=== PATIENT | female | born 1940 | race Caucasian/White ===

== ENCOUNTER 2017-03-01 21:44 | Emergency (ER) | payer OTHER ==
[~2017-03-01] VITALS: Ht 152.4 cm; Wt 55.4 kg
[2017-03-01 21:48] VITALS: TEMP 37.2; Ht 152.4 cm; Wt 55.4 kg
[2017-03-01] MEDS ORDERED: LATA0.5S OPB (22:28)
--- NOTE | 2017-03-01 22:54 | DIAGNOSTIC IMAGING REPORT ---
LEFT FOOT MIN 3 VIEWS ROUTINE CLINICAL HISTORY: Left foot pain. Trauma. COMPARISON: None. DISCUSSION: The bones are osteopenic. There is a plantar calcaneal spur. There are mild degenerative changes. No fractures are visualized. IMPRESSION: Osteopenia. No acute fractures or dislocations identified. Electronically signed by: Randy Buenrostro M.D. 03/01/2017 10:53 PM Dictated Date/Time: 03/01/2017 10:52 PM
--- NOTE | 2017-03-01 22:56 | DIAGNOSTIC IMAGING REPORT ---
LEFT ANKLE MIN 3 VIEWS ROUTINE CLINICAL HISTORY: Left ankle pain status post trauma COMPARISON: None. DISCUSSION: The bones are osteopenic. There is a plantar calcaneal spur. No acute fractures or dislocations are visualized. IMPRESSION: No fractures identified. Electronically signed by: Randy Buenrostro M.D. 03/01/2017 10:55 PM Dictated Date/Time: 03/01/2017 10:54 PM
--- NOTE | 2017-03-01 22:57 | EMERGENCY ROOM VISIT NOTE ---
ED Visit Note First contact with patient: 21:50 This Patient was discussed with the physician Director Equipment, Jyothi Villegas PA-C. The pertinent historical and physical exam findings were confirmed. I agree with the studies ordered and with the interpretations of these studies. I agree with the disposition and care plan.
--- NOTE | 2017-03-01 22:57 | DIAGNOSTIC IMAGING REPORT ---
LEFT TIBIA/FIBULA 2 VIEWS ROUTINE CLINICAL HISTORY: Left lower leg pain status post trauma COMPARISON: None. DISCUSSION: The bones are osteopenic. No acute fractures or dislocations are visualized. IMPRESSION: No fractures identified. Electronically signed by: Randy Buenrostro M.D. 03/01/2017 10:55 PM Dictated Date/Time: 03/01/2017 10:55 PM
--- NOTE | 2017-03-01 23:02 | EMERGENCY ROOM VISIT NOTE ---
ED Visit Note First contact with patient: 21:50 CHIEF COMPLAINT: Foot/leg pain HISTORY OF PRESENT ILLNESS: This 76-year-old female patient presents to the emergency department ambulatory complaining of left foot/leg pain. The patient states that she was playing with her grandkids in a toy wagon. She reports that they were going down a hill and she attempted to stop the wagon by putting her left leg down. She describes pain in the outside of her left foot which radiates up the left leg. She rates her discomfort a 10/10. She is able to walk. She denies any numbness or weakness. She denies any previous injuries to this ankle/foot. REVIEW OF SYSTEMS: GENERAL: A 6 system review of systems was completed with positives and pertinent negatives in the HPI. ALLERGIES: Narcotics MEDICATIONS: Latanoprost PMH: No significant past medical history. SOCIAL HISTORY: The patient lives locally with family. PHYSICAL EXAM: Vital Signs: Reviewed Nurse's notes, vital signs stable. GENERAL : This is a 76-year-old female, in no acute distress, but appears in pain, well- developed, well-nourished. MUSCULOSKELETAL: No visual deformities. There is tenderness to palpation of the lateral aspect of the left foot and over the lateral aspect of the left tibia/fibula. There is no tenderness over the lateral or medial malleolus. Range of motion is full. The skin is intact and there are no lacerations or puncture wounds. Dorsalis pedis pulse 2+. Capillary refill less than 2 seconds. RADIOGRAPHIC FINDINGS: LEFT ANKLE MIN 3 VIEWS ROUTINE DISCUSSION: The bones are osteopenic. There is a plantar calcaneal spur. No acute fractures or dislocations are visualized. IMPRESSION: No fractures identified. LEFT FOOT MIN 3 VIEWS ROUTINE DISCUSSION: The bones are osteopenic. There is a plantar calcaneal spur. There are mild degenerative changes. No fractures are visualized. IMPRESSION: Osteopenia. No acute fractures or dislocations identified. LEFT TIBIA/FIBULA 2 VIEWS ROUTINE DISCUSSION: The bones are osteopenic. No acute fractures or dislocations are visualized. IMPRESSION: No fractures identified. EMERGENCY DEPARTMENT COURSE: I examined the patient. X-rays were performed and reviewed by myself and radiology as noted above. There are no acute fractures. The patient was placed in a postoperative shoe. Conservative measures were discussed. The patient was independently evaluated by Dr. Thornton, ED attending physician, who agreed with my assessment and treatment plan. The patient verbalized her understanding of my assessment and treatment plan and was discharged home in good condition. DIAGNOSIS: Left foot injury Current/Historical Medications Scheduled Latanoprost (Xalatan 0.005% Oph Dot), 1 DROP OPB HS Allergies Coded Allergies: Morphine (Verified Adverse Reaction, Mild, NAUSEA, 12/10/09) Uncoded Allergies: NARCOTICS (Adverse Reaction, Severe, NAUSEA, VERTIGO, 12/24/13) Vital Signs Date Time Temp Pulse Resp B/P Pulse Ox O2 Delivery O2 Flow Rate FiO2 03/01/17 23:10 66 16 136/74 99 03/01/17 21:48 37.2 70 18 143/78 99 Room Air Departure Information Impression Primary Impression: Injury of left foot Dispostion Home / Self-Care Condition GOOD Referrals No Doctor, Assigned (PCP) Patient Instructions My [facility] Additional Instructions You have been treated in the Emergency Department for a foot injury. For pain control, you can use the following [id number] medicines (if >12 yo): - Regular strength (325mg/tab) Tylenol (acetaminophen) 2 tabs every 4-6 hours as needed. Do not exceed 12 tablets in a 24 hour period. Avoid taking more than 4 grams (4000 mg) of Tylenol per day. This includes any other sources of acetaminophen you may take on a regular basis. - Regular strength (200 mg/tab) Advil (ibuprofen) 1-2 tabs every 4-6 hours as needed. Do not exceed a dose of 3200 mg per day. If this is a recent injury (<24 hrs), ice can be applied to the area of pain for the first 3 days to help decrease pain and inflammation. Follow-up with your primary care provider next week. Wear the boot for the next 3-4 days, then as needed for pain. Return to the Emergency Department if your current symptoms worsen despite treatment course outlined above, or if you develop any of the following symptoms : intractable pain despite aforementioned treatment course or new onset of numbness or tingling of the foot. Problem Qualifiers Primary Impression: Injury of left foot Encounter type: initial encounter Qualified Codes: S99.922A - Unspecified injury of left foot, initial encounter
[2017-03-01 23:10] VITALS: BP 136/74; PULSE 66; O2SAT 99
== END 2017-03-01 23:11 | disposition home or self-care (01) ==
LOC: C.EDB 21:45 → C.EDD 23:11
DX: S99.922A Unspecified injury of left foot, initial encounter (principal); X58.XXXA Exposure to other specified factors, initial encounter; Y93.89 Activity, other specified; Y99.8 Other external cause status

== ENCOUNTER 2019-12-16 17:30 | Inpatient (IN) ==
[2019-12-16] MEDS ORDERED: SODIUM CHLORIDE 0.9% 1000ML 1,000 ML IV SCH (18:00)
[2019-12-16 18:03] LABS: Appearance Urine Clear (Clear); Bilirubin Urine Negative (Negative); Blood Urine Negative (Negative); Color Urine Yellow; Glucose Urine UA Negative (Negative); Ketones Urine Negative (Negative); Leukocyte Esterase Urine Negative (Negative); Nitrite Urine Negative (Negative); Protein Urine Negative (Negative); Specific Gravity Urine 1.015 (1.000-1.030); Urobilinogen Urine Negative (Negative); pH Urine 7.5 (4.5-7.5)
--- NOTE | 2019-12-16 18:09 | XRay Report ---
XR chest 1V portable CLINICAL HISTORY: 79 years-old Female presenting with weakness. TECHNIQUE: Portable upright AP view of the chest was obtained. COMPARISON: 12/12/2013. FINDINGS: Atherosclerosis of the aortic arch. Cardiac silhouette normal in size. Lungs mildly hyperinflated. Qu estionable nodular opacities in the left apex. No other focal opacity. No pleural effusion or pneumot horax. Osseous structures normal. Upper abdomen normal. IMPRESSION: 1. Questionable left apical nodular infiltrate versus prominence of vasculature. No other evidence o f acute cardiopulmonary disease. ACT 112: Negative or not required by law. Electronically signed by: Raymond Penn M.D. 12/16/2019 6:08 PM
[2019-12-16 18:37] LABS: Hematocrit (blood only) 35.5 % (37-47); Hemoglobin 11.7 g/dL (12.0-16.0); Mean Corpuscular Hemoglobin 30.4 pg (25-34); Mean Corpuscular Volume 92.2 fL (80-100); Platelet Count 222 K/uL (130-400); RDW Coefficient of Variation 13.5 % (11.5-14.5); RDW Standard Deviation 45.3 fL (36.4-46.3); Red Blood Count 3.85 M/uL (4.2-5.4)
--- NOTE | 2019-12-16 18:43 | CT Scan Report ---
CT head/brain wo con CLINICAL HISTORY: 79 years-old Female presenting with ams. TECHNIQUE: Multidetector CT imaging of the head was performed without the use of intravenous contrast . IV contrast: None. One or more dose lowering techniques were used consistent with the principles of ALARA (as low as reasonably achievable), including automatic exposure control, mA or kV adjustment t o individual patient size, and/or use of iterative reconstruction. COMPARISON: None. CT DOSE (mGy.cm): The estimated cumulative dose is 537.48 mGy.cm. FINDINGS: [employer] M[employer]ainer topogram: Unremarkable. Proportional ventricular and sulcal prominence, likely age-related parenchymal volume loss. No hemorr brian. Periventricular and subcortical white matter hypoattenuation, nonspecific but likely indicative of chronic small vessel ischemic change. No acute territorial infarct. No mass effect or midline vinicio ft. No extra-axial fluid collection. Paranasal sinuses and mastoid air cells clear. Calvarium intact. IMPRESSION: 1. Chronic small vessel ischemic change. No acute intracranial abnormality. ACT 112: Negative or not required by law. Electronically signed by: Raymond Penn M.D. 12/16/2019 6:42 PM
[2019-12-16 18:53] LABS: Prothrombin Time 10.5 Seconds (9.0-12.0)
[2019-12-16 18:54] LABS: Alanine Aminotransferase 26 U/L (12-78); Aspartate Aminotransferase 21 U/L (15-37); BUN Creatinine Ratio 10.9 (10-20); Blood Urea Nitrogen 11 mg/dl (7-18); Calcium 9.2 mg/dl (8.5-10.1); Carbon Dioxide 27 mmol/L (21-32); Chloride 106 mmol/L (98-107); Creatinine Clr Calc Pharmacy 36.7 ml/min; Est GFR (African American) 62.5; Est GFR (Non-African American) 53.9; Glucose 87 mg/dl (70-99); Potassium 3.7 mmol/L (3.5-5.1); Sodium 136 mmol/L (136-145)
[2019-12-16] MEDS ORDERED: LEVOFLOXACIN/D5W 750 MG/150 ML BAG IV SCH (19:00)
[2019-12-16 19:09] LABS: Basophils # (auto) 0.02 K/uL (0-0.2); Basophils % (auto) 0.3 %; Eosinophils # (auto) 0.06 K/uL (0-0.5); Immature Granulocytes # (auto) 0.01 K/uL (0.00-0.02); Immature Granulocytes % (auto) 0.2 %; Lymphocytes # (auto) 0.88 K/uL (1.2-3.4); Lymphocytes % (auto) 14.4 %; Monocytes # (auto) 0.66 K/uL (0.11-0.59); Monocytes % (auto) 10.8 %; Neutrophils # (auto) 4.47 K/uL (1.4-6.5); Neutrophils % (auto) 73.3 %
[2019-12-16 19:34] LABS: Albumin Globulin Ratio 1.2 (0.9-2); Alkaline Phosphatase 59 U/L (45-117); Bilirubin,Total 0.3 mg/dl (0.2-1); Globulin 3.3 gm/dl (2.5-4.0); Thyroid Stimulating Hormone 0.992 uIu/ml (0.300-4.500); Total Protein 7.3 gm/dl (6.4-8.2); Troponin I < 0.015 ng/ml (0-0.045)
[2019-12-16] MEDS ORDERED: KETOROLAC TROMETHAMINE 15 MG/ML VIAL IV ONE (19:40)
[2019-12-16] MEDS ORDERED: cefTRIAXone SODIUM 1,000 MG/50 ML BAG IV STA (19:45)
[2019-12-16] MEDS ORDERED: SODIUM CHLORIDE 0.9% 1000ML 1,000 ML IV ONE (19:45)
[2019-12-16 21:17] LABS: Influenza B virus by PCR Neg for Influ B (Neg)
[2019-12-16] MEDS ORDERED: OSELTAMIVIR PHOSPHATE 75 MG CAP PO SCH (21:45)
[2019-12-16] MEDS ORDERED: PHARMACIST DISCHARGE MED REC CONSULT PRN (22:20)
[2019-12-16] MEDS ORDERED: NITROGLYCERIN SL 0.4 MG/TAB TAB SL PRN (22:20)
[2019-12-16] MEDS ORDERED: PIPERACILL/TAZOBAC CONSULT ACTIVE PRN (22:20)
--- NOTE | 2019-12-16 22:39 | History and Physical Report ---
DATE OF ADMISSION: 12/16/2019 CHIEF COMPLAINT: Altered mental status. 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 She is supposed to be on oxygen all the time, but she uses only in the nighttime and she still smokes, she has smoked since as a teenager, but currently 1 pack of cigarettes, lasts for 2-3 days. The patient lives with her daughter. In the morning, when the daughter left for work she was fine, and when the daughter came in the evening around 5:00, patient was found to be confused. She could not open her eyes, she could not squeeze her hands, and they thought maybe she was having a stroke and EMS was called in and patient was brought to the ER. In the ER, when she came in, she was afebrile, but later she spiked temperature. Her blood pressure is on the lower side, but there is no leukocytosis. She was oriented to name. UA was negative. CT of the head was unremarkable. Chest x-ray showed possible left apical nodular infiltrate. So it was thought that confusion could be from her ongoing infectious process. The patient is somewhat warm to touch, oriented to name, can tell her date of , but when asked where she is, she says knows where she is, but she does not answer and she talks sometimes tangentially. She knows her daughters names. Could not get much history from the patient As per the daughters, last night she had some cough, complained of some back pain, they thought may be she has some UTI. Apparently, she was doing fine otherwise and when daughter was going to work, she was doing fine and also in the evening when she came in, she saw that she cleaned the kitchen, but we do not know exact time when she got confused. There is no nausea, vomiting or diarrhea. No complaint of any pain. Otherwise she is very independent and ambulates fine, but today when they were bringing her to hospital, she looked like she was very unstable on ambulation. But after some time later it looks like her mental status is slightly improved. She seems to be a little more appropriate in answering questions. She was able to obey simple commands. When discussed with daughter about whether she wants any MRI scan to rule out stroke, the daughter wanted to get MRI scan initially but when flu came back positive she was ok waiting and see and also we don't know the exact time of her staring of confusion . ALLERGIES: MORPHINE. PAST MEDICAL HISTORY: As mentioned above. PAST SURGICAL HISTORY: , discectomy of the spine, sling attached to the bladder and urethra, lumbar hemilaminectomy, lasering of secondary cataracts bilaterally, back surgeries x2 in [place]. MEDICATIONS: The patient is currently on aspirin 81 mg p.o. daily, Lipitor 40 mg p.o. a.m., Cosopt one drop ophthalmic b.i.d., latanoprost 1 drop ophthalmic at bedtime. FAMILY HISTORY: Significant for brother has diabetes and heart disorder. Mother has CABG in the 60s. Sister has hypertension. SOCIAL HISTORY: , lives with her daughter. Used to smoke 1 pack a day, but lately is smoking 1 pack every 2-3 days. She has smoked since last 55 years. No alcohol use, no drug use. REVIEW OF SYSTEMS: Could not get complete review of systems because of patient's altered mental status. PHYSICAL EXAMINATION: GENERAL: The patient is alert and oriented to name, could tell her date of . VITAL SIGNS: Temperature 38.7, pulse 83, respiratory rate 30s, blood pressure 98/55, oxygen 96% on room air. HEENT: No pallor, no icterus. Pupils equal, round, and reactive to light. NECK: No JVD, no neck masses, no carotid bruits. CARDIOVASCULAR: S1, S2 heard, regular rate and rhythm, no murmur, no gallop. RESPIRATORY SYSTEM: Normal AP diameter. No accessory muscle use. No wheezing, no crackles. ABDOMEN: Soft, bowel sounds present, nontender. No distention. CENTRAL NERVOUS SYSTEM: Alert and oriented x1, can tell her date of . Speech is clear. Obeys simple commands. No pronator drift. Power is normal in the extremities. Could not do complete exam because the patient is somewhat confused and has difficulty following complex commands. EXTREMITIES: No edema, no erythema. LABORATORY DATA: WBC 6.1, hemoglobin 11.7, hematocrit 35.5, platelets 222. PT 10.5, INR 1. Sodium 136, potassium 3.7, chloride 106, bicarbonate 27, BUN 11, creatinine 1, serum glucose 187. Lactate 1.1, calcium 9.2, magnesium 2, total bilirubin 0.3, AST 21, ALT 26, alkaline phosphatase 59. Troponin I less than 0.015. TSH 0.992. Urinalysis negative. Influenza A and B PCR negative. IMAGING DATA: Chest x-ray, questionable left apical nodular infiltrate versus prominent vasculature. IMAGING DATA: CT of the head, no acute findings seen. Chronic small vessel ischemic change. EKG: Normal sinus rhythm with rate of 77, nonspecific T-wave abnormality. ASSESSMENT AND PLAN: A 79-year-old female who was brought in because of altered mental status. 1. Altered mental status, acute encephalopathy, most likely metabolic from fever and flu. Possibility of pneumonia on the x-ray. UA is negative. . Lactate is normal. We will treat with IV fluids, normal saline 125 mg per hour, IV Rocephin and , IV doxycycline. Follow the cultures. Closely monitor in the tele floor. Later Flu came positive for influenza A. Started on Tamiflu and continued iv abx and fluids. 2. Questionable cerebrovascular accident. The patient is somewhat speaking tangentially. The rest of the exam looks okay and the family is concerned, and also there was no obvious source of infection initially. Ct head unremarkable. If any ongoing suspicion will get MRI head. 3. History of asthma. History of tobacco abuse. Supposed to be on inhalers and oxygen all the time. Will use oxygen only in the nighttime and not using inhalers. The patient does not have any wheezing. counseling for tobacco abuse when stable. We will place on nebs p.r.n. and oxygen. May do 2 step prior to discharge. 4. Hyperlipidemia, on statin. 5. Chronic kidney disease stage III, creatinine 1, seems to be at baseline. We will follow the labs. 6. History of abdominal aortic aneurysm at 4.6 cm on the CAT scan in February 2019. 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 Follows with vascular surgery. 7. Deep venous thrombosis prophylaxis. We will place on sequential compression devices. 8. Disposition: Closely monitor in tele floor. Level 1 full code status. Daughters do not know her wishes, but okay for full code for now. Admit to tele floor. Expect to discharge home and follow with the family doctor. PT and OT prior to discharge. Social service to help with discharge planning. JACINDA
[2019-12-16] MEDS ORDERED: OSELTAMIVIR PHOSPHATE SUSP 30 MG/5 ML UDP PO ONE (22:45)
[2019-12-16 22:53] LABS: Base Excess ABG -3.2 mEq/L (-9-1.8); HCO3 ABG 21 mmol/L (19-24); Oxygen Saturation ABG 96.6 % (90-95); PCO2 ABG 32 mmHg (35-46); PO2 ABG 82 mmHg (80-95); pH ABG 7.42 (7.35-7.45)
[2019-12-16 22:54] LABS: Allen Test Pos (Pos)
[2019-12-16] MEDS: SODIUM CHLORIDE 0.9% 1000ML 1,000 ML IV SCH (22:56)
[2019-12-16] MEDS: DORZOLAMIDE HCL 2% OPH SOLN 10 ML BTL OPB SCH (23:24)
[2019-12-16] MEDS: LATANOPROST 0.005% OP SOLN 2.5 ML BTL OPB SCH (23:24)
[2019-12-16] MEDS: DOXYCYCLINE HYCLATE 100 MG in DEXTROSE 5% 100 ML IV SCH (23:31)
--- NOTE | 2019-12-16 23:56 | Emergency Department Note ---
Entered by Bren Larsen acting as a scribe for Adonay Cain DO History of Present Illness General Chief complaint: Confusion Stated complaint: STROKE SX, AMS Source: family (daughter) History of Present Illness Onset (ago): hour(s) (2) Location: head (general) Pain Consistency: + intermittent Quality: + other (confusion) Associated symptoms: + denies other symptoms (runny nose, pain or burning with urination, diarrhea, abdominal pain) and + other (garbled speech, back pain); no cough The patient is a 79 year old female who presents to the Emergency Room with complaints of intermittent confusion noticed 2 hours ago. The patient's daughter states the patient lives with her. She note the patient was last seen normal this morning. The patient's daughter reports the patient was lying on the couch, could not open her eyes, and had garbled speech when she came home this afternoon. She states the patient was complaining of back pain. She notes the patient was able to squeeze her hands. The patient's daughter denies a cough, runny nose, pain or burning with urination, diarrhea, and abdominal pain. She reports a history of high cholesterol, abdominal aneurysms, COPD and smoking. She states the patient is supposed to wear 4L of oxygen but does not comply. She notes the patient does not have a history of dementia. She reports the patient is on baby aspirin. Home Medications Home Medications Medication Instructions Recorded Confirmed Type aspirin 81 mg PO QAM 11/26/19 12/16/19 History atorvastatin [Lipitor] 40 mg PO QAM 11/26/19 12/16/19 History dorzolamide [Trusopt] 1 drp OPB BID 12/16/19 12/16/19 History latanoprost [Xalatan] 1 drp OPB HS 12/16/19 12/16/19 History Allergies Allergy/AdvReac Type Severity Reaction Status Date / Time morphine AdvReac Mild NAUSEA Verified 12/16/19 18:24 NARCOTICS AdvReac Severe NAUSEA, Uncoded 12/16/19 18:24 VERTIGO Past Med/Surg History Medical History Abdominal aneurysm Injury of left foot (Acute) Surgical History Postoperative state (Acute 12/24/13) Family History Other Family history non-contributory Social History Preferred Language: German Senior Clinician Required: No Beliefs That Will Affect Care: None Current Living Situation: Family Current Living Situation Comment: single floor Other Information That Helps Us Care for You: No Feels Safe at Home: Yes Safety Concerns: Feels Safe At This Time Smoking Status: Current every day smoker Tobacco Type: cigarettes ; Do You Dip or Chew Tobacco: No ; Second Hand Exposure: Yes ; Tobacco Cessation Education Requested by Patient: No Hx Alcohol Use: No Hx Substance Use: No Review of Systems See HPI for pertinent positives & negatives. Unobtainable due to cognitive status Physical Exam Vital Signs Vital Signs - 24 hr 12/16/19 17:44 12/16/19 17:58 12/16/19 19:01 Temperature 37.3 C Temperature Source Oral Pulse Rate 80 83 Pulse Rate from SpO2 Sensor Respiratory Rate 17 28 H Blood Pressure 109/66 80/57 L Blood Pressure Mean 80 66 Pulse Oximetry 97 97 Oxygen Delivery Method Room Air Room Air Sepsis Recent Fever Within 48 Hours No Sepsis Action Taken by Nursing No Action Required 12/16/19 19:14 12/16/19 19:15 12/16/19 19:31 Temperature Temperature Source Pulse Rate 86 79 78 Pulse Rate from SpO2 Sensor 85 78 81 Respiratory Rate 35 H 26 H 31 H Blood Pressure 155/132 H 91/71 L 96/55 L Blood Pressure Mean 136 85 60 Pulse Oximetry 97 98 96 Oxygen Delivery Method Sepsis Recent Fever Within 48 Hours Sepsis Action Taken by Nursing 12/16/19 19:41 12/16/19 19:50 12/16/19 19:55 Temperature 38.7 C H Temperature Source Rectal Pulse Rate 83 Pulse Rate from SpO2 Sensor 88 Respiratory Rate 37 H Blood Pressure 98/55 L Blood Pressure Mean 61 Pulse Oximetry 96 96 Oxygen Delivery Method Room Air Sepsis Recent Fever Within 48 Hours Sepsis Action Taken by Nursing 12/16/19 20:01 Temperature Temperature Source Pulse Rate 75 Pulse Rate from SpO2 Sensor 75 Respiratory Rate 31 H Blood Pressure 110/51 L Blood Pressure Mean 78 Pulse Oximetry 95 Oxygen Delivery Method Sepsis Recent Fever Within 48 Hours Sepsis Action Taken by Nursing GENERAL: sitting up in bed, disheveled, confused HEAD: nc/at EYE EXAM: normal conjunctiva, PERRL and EOM's grossly intact OROPHARYNX: no exudate, no erythema, lips, buccal mucosa, and tongue normal and mucous membranes are moist NECK: supple, no nuchal rigidity, no adenopathy, non-tender LUNGS: Clear to auscultation. Normal chest wall mechanics HEART: no murmurs, S1 normal and S2 normal ABDOMEN: abdomen soft, non-tender, normo-active bowel sounds, no masses, no rebound or guarding. BACK: Back is symmetrical on inspection and there is no deformity, no midline tenderness, no CVA tenderness. SKIN: no rashes and no bruising UPPER EXTREMITIES: upper extremities are grossly normal. LOWER EXTREMITIES: No pitting edema. NEURO EXAM: Oriented to person, but not place or time, cranial nerves II-XII intact, normal speech, no weakness of arms, no weakness of legs. Unable to perform finger to nose. Gross sensation intact. Moves all extremities. Course Course ED COURSE: Vital signs were reviewed and showed hypotension The patients medical record was reviewed The above diagnostic studies were performed and reviewed. ED treatments and interventions as stated above. 1740: The patient was evaluated in room C10. A complete history and physical ex amination was performed. 1950: Blood pressure was 150 systolics up from 80s. 2020: Upon reevaluation, the patient is resting comfortably. I discussed my findings with the family understands and agrees with the treatment plan. Based on the patients age, coexisting illnesses, exam and lab findings the decision to treat as an inpatient was made. The patient remained stable while under my care. The patient will be evaluated for further management. Administered Medications Dorzolamide HCl (Trusopt 2% Oph) 1 drops OPB BID PETER Stop: 01/15/20 22:19 Last Admin: 12/16/19 23:24 Dose: 1 drops Documented by: [id number] Sodium Chloride (Nss 1000ml) 1,000 mls @ 125 mls/hr IV .Q8H PETER Stop: 01/15/20 22:19 Last Admin: 12/16/19 22:56 Dose: 125 mls/hr Documented by: [id number] Doxycycline Hyclate 100 mg/ (Dextrose) 110 mls @ 50 mls/hr IV Q12H PETER Stop: 12/23/19 22:59 Last Admin: 12/16/19 23:31 Dose: 50 mls/hr Documented by: [id number] Latanoprost (Xalatan Oph) 1 drops OPB HS PETER Stop: 01/15/20 22:19 Last Admin: 12/16/19 23:24 Dose: 1 drops Documented by: [id number] Discontinued Medications Sodium Chloride (Nss 1000ml) 1,000 mls @ 999 mls/hr IV .Q1H1M PETER Stop: 12/16/19 19:00 Last Infusion: 12/16/19 19:29 Dose: 0 mls/hr Documented by: [id number] Admin: 12/16/19 18:18 Dose: 999 mls/hr Documented by: [id number] Levofloxacin/Dextrose (Levaquin/D5w) 750 mg in 150 mls @ 100 mls/hr IV Q24H PETER Stop: 01/27/20 18:59 Last Infusion: 12/16/19 23:10 Dose: 0 mls/hr Documented by: [id number] Infusion: 12/16/19 21:15 Dose: 100 mls/hr Documented by: [id number] Infusion: 12/16/19 19:30 Dose: 0 mls/hr Documented by: [id number] Admin: 12/16/19 19:29 Dose: 100 mls/hr Documented by: [id number] Sodium Chloride (Nss 1000ml) 1,000 mls @ 999 mls/hr IV .Q1H1M ONE Stop: 12/16/19 20:45 Last Infusion: 12/16/19 20:54 Dose: 0 mls/hr Documented by: [id number] Admin: 12/16/19 19:50 Dose: 999 mls/hr Documented by: [id number] Ceftriaxone Sodium (Rocephin) 1,000 mg in 50 mls @ 100 mls/hr IV NOW STA Stop: 12/16/19 20:14 Last Infusion: 12/16/19 22:05 Dose: 0 mls/hr Documented by: [id number] Admin: 12/16/19 21:33 Dose: 100 mls/hr Documented by: [id number] Ketorolac Tromethamine (Toradol) 10 mg IV NOW ONE Stop: 12/16/19 19:41 Last Admin: 12/16/19 19:52 Dose: 10 mg Documented by: [id number] Oseltamivir Phosphate (Tamiflu) 30 mg PO ONE ONE; Protocol Stop: 12/16/19 22:46 Last Admin: 12/16/19 23:26 Dose: 30 mg Documented by: [id number] Medical Decision Making Differential Diagnosis Differential diagnoses includes but is not limited to toxic, metabolic, infe ctious, traumatic, cardiac, neurologic, hematologic, psychiatric and inflammatory etiologies. Medical Records Attestation: I reviewed the patient's medical records. Home Medications Current Medication List: was personally reviewed by me Laboratory Data Attestation: I reviewed the patient's lab results. Result diagrams: 12/16/19 18:20 12/16/19 18:20 Lab Results 12/16/19 12/16/19 12/16/19 Range/Units 17:50 18:20 18:20 WBC 6.10 (4.8-10.8) K/uL RBC 3.85 L (4.2-5.4) M/uL Hgb 11.7 L (12.0-16.0) g/dL Hct 35.5 L (37-47) % MCV 92.2 (80-100) fL MCH 30.4 (25-34) pg MCHC 33.0 (32-36) g/dL RDW Std Deviation 45.3 (36.4-46.3) fL RDW Coeff of Rachel 13.5 (11.5-14.5) % Plt Count 222 (130-400) K/uL MPV 10.0 (7.4-10.4) fL Immature Gran % (Auto) 0.2 % Neut % (Auto) 73.3 % Lymph % (Auto) 14.4 % [place] % (Auto) 10.8 % Eos % (Auto) 1.0 % Baso % (Auto) 0.3 % Immature Gran # (Auto) 0.01 (0.00-0.02) K/uL Neut # (Auto) 4.47 (1.4-6.5) K/uL Lymph # (Auto) 0.88 L (1.2-3.4) K/uL [place] # (Auto) 0.66 H (0.11-0.59) K/uL Eos # (Auto) 0.06 (0-0.5) K/uL Baso # (Auto) 0.02 (0-0.2) K/uL PT 10.5 (9.0-12.0) Seconds INR 1.0 (0.9-1.1) Sodium (136-145) mmol/L Potassium (3.5-5.1) mmol/L Chloride (98-107) mmol/L Carbon Dioxide (21-32) mmol/L Anion Gap (3-11) BUN (7-18) mg/dl Creatinine (0.6-1.2) mg/dl Est Cr Clr Drug Dosing ml/min Est GFR ( Amer) Est GFR (Non-Af Amer) BUN/Creatinine Ratio (10-20) Glucose (70-99) mg/dl Lactate (0.4-2.0) mmol/L Calcium (8.5-10.1) mg/dl Magnesium (1.8-2.4) mg/dl Total Bilirubin (0.2-1) mg/dl AST (15-37) U/L ALT (12-78) U/L Alkaline Phosphatase (45-117) U/L Troponin I (0-0.045) ng/ml Total Protein (6.4-8.2) gm/dl Albumin (3.4-5.0) gm/dl Globulin (2.5-4.0) gm/dl Albumin/Globulin Ratio (0.9-2) TSH (0.300-4.500) uIu/ml Urine Color Yellow Urine Appearance Clear (Clear) Urine pH 7.5 (4.5-7.5) Ur Specific [place] 1.015 (1.000-1.030) Urine Protein Negative (Negative) Urine Glucose (UA) Negative (Negative) Urine Ketones Negative (Negative) Urine Blood Negative (Negative) Urine Nitrite Negative (Negative) Urine Bilirubin Negative (Negative) Urine Urobilinogen Negative (Negative) Ur Leukocyte Esterase Negative (Negative) 12/16/19 12/16/19 Range/Units 18:20 18:20 WBC (4.8-10.8) K/uL RBC (4.2-5.4) M/uL Hgb (12.0-16.0) g/dL Hct (37-47) % MCV (80-100) fL MCH (25-34) pg MCHC (32-36) g/dL RDW Std Deviation (36.4-46.3) fL RDW Coeff of Rachel (11.5-14.5) % Plt Count (130-400) K/uL MPV (7.4-10.4) fL Immature Gran % (Auto) % Neut % (Auto) % Lymph % (Auto) % [place] % (Auto) % Eos % (Auto) % Baso % (Auto) % Immature Gran # (Auto) (0.00-0.02) K/uL Neut # (Auto) (1.4-6.5) K/uL Lymph # (Auto) (1.2-3.4) K/uL [place] # (Auto) (0.11-0.59) K/uL Eos # (Auto) (0-0.5) K/uL Baso # (Auto) (0-0.2) K/uL PT (9.0-12.0) Seconds INR (0.9-1.1) Sodium 136 (136-145) mmol/L Potassium 3.7 (3.5-5.1) mmol/L Chloride 106 (98-107) mmol/L Carbon Dioxide 27 (21-32) mmol/L Anion Gap 3.0 (3-11) BUN 11 (7-18) mg/dl Creatinine 1.00 (0.6-1.2) mg/dl Est Cr Clr Drug Dosing 36.7 ml/min Est GFR ( Amer) 62.5 Est GFR (Non-Af Amer) 53.9 BUN/Creatinine Ratio 10.9 (10-20) Glucose 87 (70-99) mg/dl Lactate 1.1 (0.4-2.0) mmol/L Calcium 9.2 (8.5-10.1) mg/dl Magnesium 2.0 (1.8-2.4) mg/dl Total Bilirubin 0.3 (0.2-1) mg/dl AST 21 (15-37) U/L ALT 26 (12-78) U/L Alkaline Phosphatase 59 (45-117) U/L Troponin I < 0.015 (0-0.045) ng/ml Total Protein 7.3 (6.4-8.2) gm/dl Albumin 4.0 (3.4-5.0) gm/dl Globulin 3.3 (2.5-4.0) gm/dl Albumin/Globulin Ratio 1.2 (0.9-2) TSH 0.992 (0.300-4.500) uIu/ml Urine Color Urine Appearance (Clear) Urine pH (4.5-7.5) Ur Specific [place] (1.000-1.030) Urine Protein (Negative) Urine Glucose (UA) (Negative) Urine Ketones (Negative) Urine Blood (Negative) Urine Nitrite (Negative) Urine Bilirubin (Negative) Urine Urobilinogen (Negative) Ur Leukocyte Esterase (Negative) Imaging Data Radiologist's Impression: Radiology results as stated below per my review and the radiologist's interpretation: XR chest 1V portable CLINICAL HISTORY: 79 years-old Female presenting with weakness. TECHNIQUE: Portable upright AP view of the chest was obtained. COMPARISON: 12/12/2013. FINDINGS: Atherosclerosis of the aortic arch. Cardiac silhouette normal in size. Lungs mildly hyperinflated. Questionable nodular opacities in the left apex. No other focal opacity. No pleural effusion or pneumothorax. Osseous structures normal. Upper abdomen normal. IMPRESSION: 1. Questionable left apical nodular infiltrate versus prominence of vasculature. No other evidence of acute cardiopulmonary disease. ACT 112: Negative or not required by law. Electronically signed by: Raymond Penn M.D. 12/16/2019 6:[address] head/brain wo con CLINICAL HISTORY: 79 years-old Female presenting with ams. TECHNIQUE: Multidetector CT imaging of the head was performed without the use of intravenous contrast. IV contrast: None. One or more dose lowering techniques were used consistent with the principles of ALARA (as low as reasonably achievable), including automatic exposure control, mA or kV adjustment to individual patient size, and/or use of iterative reconstruction. COMPARISON: None. CT DOSE (mGy.cm): The estimated cumulative dose is 537.48 mGy.cm. FINDINGS: Blending Operator topogram: Unremarkable. Proportional ventricular and sulcal prominence, likely age-related parenchymal volume loss. No hemorrhage. Periventricular and subcortical white matter hypoattenuation, nonspecific but likely indicative of chronic small vessel ischemic change. No acute territorial infarct. No mass effect or midline shift. No extra-axial fluid collection. Paranasal sinuses and mastoid air cells clear. Calvarium intact. IMPRESSION: 1. Chronic small vessel ischemic change. No acute intracranial abnormality. ACT 112: Negative or not required by law. Electronically signed by: Raymond Penn M.D. 12/16/2019 6:42 PM ECG Data Attestation: I personally reviewed and interpreted this ECG as follows: Indication: + altered mental status Rate (beats per minute): 77 Rhythm: + sinus rhythm ECG Intervals/blocks: + Normal QT-c ECG [place]: + Normal ECG Findings: + Other (poor baseline); no PVCs Blood Pressure Blood Pressure Findings: Low blood pressure Blood Pressure Disposition: further management by hospitalist RENETTA Narrative Patient is a 79-year-old female who presents the ER with confusion who was last known well was summer earlier this morning. IV was established blood work was obtained and showed no significant leukocytosis but a not mild anemia. INR was unremarkable. BMP with LFTs bilirubin magnesium and lactic acid were negative. Troponin was negative. TSH unremarkable. UA was negative. Chest x-ray with a questionable focal infiltrate in the left upper lobe. Patient has had a cough for the past 24 hours. Patient was covered with broad-spectrum antibiotics as she eventually became febrile and her blood pressure did drop initially slightly. She was given 2 L IV fluids along with Rocephin and Levaquin. Patient family were updated at bedside. Discussed with the hospitalist. Patient was admitted for sepsis secondary to questionable pneumonia versus influenza. Impression & Plan Sepsis, Altered mental status, Influenza, Pneumonia Discharge Plan Visit Data *Final* Discharge Date/Time: 12/16/19 22:09 Chief Complaint: Confusion Stated Complaint: STROKE SX, AMS ED Provider: Adonay Cain Discharge Problem: Sepsis, Altered mental status, Influenza, Pneumonia Patient Disposition: Admitted As Inpatient Discharge Instructions Interventions: ED Discharge Assessment Last Done: 12/16/19 22:09 Discharge Problem: Sepsis Qualifiers: Sepsis type: sepsis due to unspecified organism Sepsis acute organ dysfunction status: unspecified Qualified Code(s): A41.9 - Sepsis, unspecified organism Altered mental status Qualifiers: Altered mental status type: unspecified Qualified Code(s): R41.82 - Altered mental status, unspecified Pneumonia Qualifiers: Pneumonia type: due to unspecified organism Laterality: unspecified laterality Lung location: unspecified part of lung Qualified Code(s): J18.9 - Pneumonia, unspecified organism The scribe's documentation has been prepared under my direction and personally reviewed by me in its entirety. I confirm that the note above accurately reflects all work, treatment, procedures, and medical decision making performed by me.
[2019-12-17] MEDS: ONDANSETRON INJ 2 MG/ML 2 ML VIAL IV PRN ×2 (03:31→20:31)
[2019-12-17] MEDS: ACETAMINOPHEN 325 MG TAB PO PRN ×3 (03:59→18:57)
[2019-12-17 05:51] LABS: Mean Corpuscular Hgb Conc 33.8 g/dL (32-36); Platelet Count 194 K/uL (130-400)
[2019-12-17 06:05] LABS: Estimated Average Glucose 120 mg/dl; Hemoglobin A1C 5.8 % (4.5-5.6)
[2019-12-17 06:18] LABS: Basophils # (auto) 0.01 K/uL (0-0.2); Basophils % (auto) 0.2 %; Hematocrit (blood only) 30.2 % (37-47); Hemoglobin 10.2 g/dL (12.0-16.0); Immature Granulocytes # (auto) 0.01 K/uL (0.00-0.02); Immature Granulocytes % (auto) 0.2 %; Lymphocytes # (auto) 0.51 K/uL (1.2-3.4); Lymphocytes % (auto) 10.5 %; Mean Corpuscular Volume 91.8 fL (80-100); Monocytes # (auto) 0.48 K/uL (0.11-0.59); Monocytes % (auto) 9.9 %; Neutrophils # (auto) 3.84 K/uL (1.4-6.5); Neutrophils % (auto) 79.2 %; RDW Coefficient of Variation 13.7 % (11.5-14.5); RDW Standard Deviation 46.1 fL (36.4-46.3); Red Blood Count 3.29 M/uL (4.2-5.4); White Blood Count 4.85 K/uL (4.8-10.8)
[2019-12-17 06:19] LABS: BUN Creatinine Ratio 11.4 (10-20); Calcium 8.2 mg/dl (8.5-10.1); Creatinine Clr Calc Pharmacy 36.1 ml/min; Est GFR (African American) 60.3; Magnesium 1.6 mg/dl (1.8-2.4); Potassium 3.8 mmol/L (3.5-5.1)
[2019-12-17] MEDS: SODIUM CHLORIDE 0.9% 1000ML 1,000 ML IV SCH ×2 (07:35→21:37)
[2019-12-17] MEDS: DORZOLAMIDE HCL 2% OPH SOLN 10 ML BTL OPB SCH ×2 (07:37→20:32)
[2019-12-17] MEDS: ASPIRIN 81 MG ECTAB PO SCH (07:37)
[2019-12-17] MEDS: ATORVASTATIN 40 MG TAB PO SCH (07:37)
[2019-12-17] MEDS: OSELTAMIVIR PHOSPHATE SUSP 30 MG/5 ML UDP PO SCH ×2 (07:44→20:56)
[2019-12-17] MEDS: DOXYCYCLINE HYCLATE 100 MG in DEXTROSE 5% 100 ML IV SCH ×2 (11:07→23:49)
--- NOTE | 2019-12-17 11:34 | Electrocardiogram Report ---
Test Reason : Blood Pressure : / mmHG Vent. Rate : 077 BPM Atrial Rate : 077 BPM P-R Int : 152 ms QRS Dur : 072 ms QT Int : 388 ms P-R-T Axes : 071 053 035 degrees QTc Int : 439 ms Poor data quality, interpretation may be adversely affected Normal sinus rhythm Nonspecific T wave abnormality Abnormal ECG When compared with ECG of 27-APR-2011 18:11, Nonspecific T wave abnormality now evident in Anterior leads Confirmed by Nikolas White ([id number]) on 12/17/2019 11:34:00 AM Referred By: REFERRED SELF Confirmed By:Nikolas White
--- NOTE | 2019-12-17 18:30 | Hospitalist Progress Note ---
Date of Service December 17, 2019 Assessment & Plan (1) Influenza: [employer] swab PCR positive for influenza A. Continue Rx with oseltamivir. (2) Pneumonia: CXR showed suspected NANCY infiltrate. Receiving doxycycline and ceftriaxone. Smoker- consider further imaging with CT. (3) Altered mental status: Family noted confusion day of admission. Head CT showed small vessel ischemic changes, no acute findings. Probable encephalopathy secondary to influenza or pnuemonia Improved. (4) Asthma: Bronchodilators PRN. (5) Abdominal aortic aneurysm: Followed by Vascular Surgery at [facility]. Overdue for f/u imaging. Check US. (6) CKD (chronic kidney disease), stage III: Serum creatinine = 1.03/ Follow. (7) Dyslipidemia: Check lipid profile. Continue atorvastatin. (8) Smoking: Smoking cessation counseling. (9) Leg pain: Check arterial and venous duplexes. (10) DVT prophylaxis: SCD's ordered. Add enoxaparin. Ambulate. (11) Discharge planning issues: Anticipated discharge to home. Family Medicine follow-up with Dr. Tyler. Admission and Anticipated Discharge Date Admission Date: December 16, 2019 Anticipated date of discharge: 12/19/19 Subjective Recheck for multiple problems. Patient seen in their room around 1300. Family visiting. Persistent cough. Low grade fever. Confusion improved. Complains of left thigh pain. Overdue for f/u imaging of AAA. Review of Systems: Constitutional- as noted above. Cardiac- no chest pain. Pulmonary- as noted above. GI- no nausea, vomiting, diarrhea, melena, hematochezia. - no urinary symptoms. Otherwise, as noted above. Physical Exam Constitutional: no acute distress Eyes: + anicteric sclerae Respiratory: no respiratory distress Auscultation: + wheezes (diffuse, mild) Cardiovascular: Rate/Rhythm: regular rate and regular rhythm Vessels: no JVD Extremities: no calf tenderness and no edema Gastrointestinal (Abdomen): normal bowel sounds, soft, nontender, no hepatosplenomegaly Musculoskeletal: Extremities: no cyanosis Skin: no rashes, warm and dry Psychiatric: Orientation: alert and oriented x 3 (oriented to person, place, day of week, year, but not president) Results & Data ([facility]) Vital Signs (Past 12 Hours) Vital Signs Temp Pulse Pulse Resp BP Pulse Ox 12/17/19 15:39 60 12/17/19 15:28 37.1 C 68 20 112/53 L 95 12/17/19 11:10 36.4 C L 63 18 101/43 L 92 12/17/19 07:28 65 12/17/19 07:16 36.9 C 69 18 92/47 L 94 Laboratory Results Laboratory Results - last 24 hr 12/16/19 12/16/19 12/16/19 18:20 18:20 18:20 WBC 6.10 RBC 3.85 L Hgb 11.7 L Hct 35.5 L MCV 92.2 MCH 30.4 MCHC 33.0 RDW Std Deviation 45.3 RDW Coeff of Rachel 13.5 Plt Count 222 MPV 10.0 Immature Gran % (Auto) 0.2 Neut % (Auto) 73.3 Lymph % (Auto) 14.4 [place] % (Auto) 10.8 Eos % (Auto) 1.0 Baso % (Auto) 0.3 Immature Gran # (Auto) 0.01 Neut # (Auto) 4.47 Lymph # (Auto) 0.88 L [place] # (Auto) 0.66 H Eos # (Auto) 0.06 Baso # (Auto) 0.02 PT 10.5 INR 1.0 ABG pH ABG pCO2 ABG pO2 ABG HCO3 ABG O2 Saturation ABG Base Excess Benson Test Oxygen Given Sodium 136 Potassium 3.7 Chloride 106 Carbon Dioxide 27 Anion Gap 3.0 BUN 11 Creatinine 1.00 Est Cr Clr Drug Dosing 36.7 Est GFR ( Amer) 62.5 Est GFR (Non-Af Amer) 53.9 BUN/Creatinine Ratio 10.9 Glucose 87 Estimat Average Glucose Hemoglobin A1c Lactate Calcium 9.2 Magnesium 2.0 Total Bilirubin 0.3 AST 21 ALT 26 Alkaline Phosphatase 59 Ammonia Troponin I < 0.015 Total Protein 7.3 Albumin 4.0 Globulin 3.3 Albumin/Globulin Ratio 1.2 Triglycerides Cholesterol LDL Cholesterol, Calc VLDL Cholesterol, Calc HDL Cholesterol Cholesterol/HDL Ratio TSH 0.992 Influenza Type A (PCR) Influenza Type B (PCR) 12/16/19 12/16/19 12/16/19 18:20 20:30 22:43 WBC RBC Hgb Hct MCV MCH MCHC RDW Std Deviation RDW Coeff of Rachel Plt Count MPV Immature Gran % (Auto) Neut % (Auto) Lymph % (Auto) [place] % (Auto) Eos % (Auto) Baso % (Auto) Immature Gran # (Auto) Neut # (Auto) Lymph # (Auto) [place] # (Auto) Eos # (Auto) Baso # (Auto) PT INR ABG pH ABG pCO2 ABG pO2 ABG HCO3 ABG O2 Saturation ABG Base Excess [place] Test Oxygen Given Sodium Potassium Chloride Carbon Dioxide Anion Gap BUN Creatinine Est Cr Clr Drug Dosing Est GFR ( Amer) Est GFR (Non-Af Amer) BUN/Creatinine Ratio Glucose Estimat Average Glucose Hemoglobin A1c Lactate 1.1 0.9 Calcium Magnesium Total Bilirubin AST ALT Alkaline Phosphatase Ammonia Troponin I Total Protein Albumin Globulin Albumin/Globulin Ratio Triglycerides Cholesterol LDL Cholesterol, Calc VLDL Cholesterol, Calc HDL Cholesterol Cholesterol/HDL Ratio TSH Influenza Type A (PCR) Pos for Influ A A* Influenza Type B (PCR) Neg for Influ B 12/16/19 12/16/19 12/17/19 22:43 22:43 05:36 WBC RBC Hgb Hct MCV MCH MCHC RDW Std Deviation RDW Coeff of Rachel Plt Count MPV Immature Gran % (Auto) Neut % (Auto) Lymph % (Auto) [place] % (Auto) Eos % (Auto) Baso % (Auto) Immature Gran # (Auto) Neut # (Auto) Lymph # (Auto) [place] # (Auto) Eos # (Auto) Baso # (Auto) PT INR ABG pH 7.42 ABG pCO2 32 L ABG pO2 82 ABG HCO3 21 ABG O2 Saturation 96.6 H ABG Base Excess -3.2 Benson Test Pos Oxygen Given RA Sodium 138 Potassium 3.8 Chloride 109 H Carbon Dioxide 22 Anion Gap 7.0 BUN 12 Creatinine 1.03 Est Cr Clr Drug Dosing 36.1 Est GFR ( Amer) 60.3 Est GFR (Non-Af Amer) 52.0 BUN/Creatinine Ratio 11.4 Glucose 97 Estimat Average Glucose Hemoglobin A1c Lactate Calcium 8.2 L Magnesium 1.6 L Total Bilirubin AST ALT Alkaline Phosphatase Ammonia 27.0 Troponin I Total Protein Albumin Globulin Albumin/Globulin Ratio Triglycerides 55 Cholesterol 97 LDL Cholesterol, Calc 40 VLDL Cholesterol, Calc 11 HDL Cholesterol 46 Cholesterol/HDL Ratio 2 TSH Influenza Type A (PCR) Influenza Type B (PCR) 12/17/19 12/17/19 05:36 05:36 WBC 4.85 RBC 3.29 L Hgb 10.2 L Hct 30.2 L MCV 91.8 MCH 31.0 MCHC 33.8 RDW Std Deviation 46.1 RDW Coeff of Rachel 13.7 Plt Count 194 MPV 10.0 Immature Gran % (Auto) 0.2 Neut % (Auto) 79.2 Lymph % (Auto) 10.5 [place] % (Auto) 9.9 Eos % (Auto) 0.0 Baso % (Auto) 0.2 Immature Gran # (Auto) 0.01 Neut # (Auto) 3.84 Lymph # (Auto) 0.51 L [place] # (Auto) 0.48 Eos # (Auto) 0.00 Baso # (Auto) 0.01 PT INR ABG pH ABG pCO2 ABG pO2 ABG HCO3 ABG O2 Saturation ABG Base Excess [place] Test Oxygen Given Sodium Potassium Chloride Carbon Dioxide Anion Gap BUN Creatinine Est Cr Clr Drug Dosing Est GFR ( Amer) Est GFR (Non-Af Amer) BUN/Creatinine Ratio Glucose Estimat Average Glucose 120 Hemoglobin A1c 5.8 H Lactate Calcium Magnesium Total Bilirubin AST ALT Alkaline Phosphatase Ammonia Troponin I Total Protein Albumin Globulin Albumin/Globulin Ratio Triglycerides Cholesterol LDL Cholesterol, Calc VLDL Cholesterol, Calc HDL Cholesterol Cholesterol/HDL Ratio TSH Influenza Type A (PCR) Influenza Type B (PCR) (1) Pneumonia Laterality: unspecified laterality Lung location: unspecified part of lung Pneumonia type: due to unspecified organism Qualified Code(s): J18.9 - Pneumonia, unspecified organism (2) Altered mental status Altered mental status type: unspecified Qualified Code(s): R41.82 - Altered mental status, unspecified
--- NOTE | 2019-12-17 19:02 | Ultrasound Report ---
BILATERAL LOWER EXTREMITY VENOUS DOPPLER CLINICAL HISTORY: leg pain COMPARISON STUDY: No previous studies for comparison. TECHNIQUE: Sonography of the deep venous system of the bilateral lower extremities was performed. Co mpression and augmentation were evaluated. FINDINGS: The bilateral common femoral, superficial femoral and popliteal veins were compressible. A ugmentation was normal. Flow was shown within the deep calf vessels. Note is made of a 2 x 0.9 x 1.4 cm right popliteal cyst. IMPRESSION: 1. No evidence of deep venous thrombus within the bilateral lower extremities. 2. Small right popliteal cyst. ACT 112: Negative or not required by law. Electronically signed by: William Salcedo M.D. 12/17/2019 7:01 PM
--- NOTE | 2019-12-17 19:07 | Ultrasound Report ---
BILATERAL LOWER EXTREMITY ARTERIAL DOPPLER ULTRASOUND CLINICAL HISTORY: leg pain, history AAA COMPARISON STUDY: No previous studies for comparison. TECHNIQUE: Bilateral ankle brachial indices were obtained. Grayscale, color and duplex Doppler sonogr aphy of the arterial systems of both lower extremity was performed. FINDINGS: The right ankle to brachial index measured 0.93 when using posterior tibial artery and 0.74 when using the dorsalis pedis. The left measured 0.95 when using posterior tibial artery and 0.87 wh en using the dorsalis pedis. Mild to moderate chronic plaque was noted within the lower extremity. No elevated velocities were identified. Biphasic and triphasic flow was shown within the bilateral comm on femoral, superficial femoral and popliteal arteries. There was monophasic flow within the bilatera l peroneal and left dorsalis pedis vessels. In addition, there is monophasic flow within the distal l eft posterior tibial artery. IMPRESSION: 1. Bilateral ankle to brachial indices at the lower limits of normal. 2. No evidence for a hemodynamically significant stenosis within the lower extremities. Mild to moder ate atherosclerotic plaque within the lower extremities. 3. Monophasic flow within the bilateral peroneal arteries, the left dorsalis pedis and the distal lef t posterior tibial artery. ACT 112: Negative or not required by law. Electronically signed by: William Salcedo M.D. 12/17/2019 7:06 PM
[2019-12-17] MEDS: cefTRIAXone SODIUM 1,000 MG in DEXTROSE 5% 50 ML IV SCH (19:12)
--- NOTE | 2019-12-17 19:46 | Ultrasound Report ---
US aorta duplex CLINICAL HISTORY: leg pain, history of AAA COMPARISON STUDY: No previous studies for comparison. TECHNIQUE: Grayscale, color and duplex Doppler sonography of the abdominal aorta was performed. FINDINGS: Proximal abdominal aorta measures 2.5 x 2.5 cm. Mid abdominal aorta measures 2.2 x 1.5 cm. An infrarenal abdominal aortic aneurysm measures 4.9 x 4.4 cm. Caliber of the proximal bilateral comm on iliac arteries is normal. There is moderate atherosclerotic plaque. IMPRESSION: 4.9 x 4.4 cm infrarenal abdominal aortic aneurysm. ACT 112: Negative or not required by law. Electronically signed by: William Salcedo M.D. 12/17/2019 7:44 PM
[2019-12-17] MEDS: LATANOPROST 0.005% OP SOLN 2.5 ML BTL OPB SCH (20:31)
[2019-12-18] MEDS: ACETAMINOPHEN 325 MG TAB PO PRN (03:45)
[2019-12-18 07:01] LABS: Basophils # (auto) 0.01 K/uL (0-0.2); Basophils % (auto) 0.2 %; Eosinophils # (auto) 0.02 K/uL (0-0.5); Eosinophils % (auto) 0.4 %; Hematocrit (blood only) 32.5 % (37-47); Hemoglobin 10.8 g/dL (12.0-16.0); Immature Granulocytes # (auto) 0.01 K/uL (0.00-0.02); Immature Granulocytes % (auto) 0.2 %; Lymphocytes # (auto) 1.01 K/uL (1.2-3.4); Lymphocytes % (auto) 20.2 %; Mean Corpuscular Hemoglobin 30.7 pg (25-34); Mean Corpuscular Hgb Conc 33.2 g/dL (32-36); Mean Corpuscular Volume 92.3 fL (80-100); Mean Platelet Volume 9.7 fL (7.4-10.4); Monocytes # (auto) 0.78 K/uL (0.11-0.59); Monocytes % (auto) 15.6 %; Neutrophils # (auto) 3.18 K/uL (1.4-6.5); Neutrophils % (auto) 63.4 %; Platelet Count 189 K/uL (130-400); RDW Coefficient of Variation 13.8 % (11.5-14.5); RDW Standard Deviation 46.6 fL (36.4-46.3); Red Blood Count 3.52 M/uL (4.2-5.4); White Blood Count 5.01 K/uL (4.8-10.8)
[2019-12-18 07:31] LABS: BUN Creatinine Ratio 10.3 (10-20); Calcium 8.6 mg/dl (8.5-10.1); Creatinine Clr Calc Pharmacy 34.3 ml/min; Est GFR (African American) 56.9; Est GFR (Non-African American) 49.1; Potassium 3.6 mmol/L (3.5-5.1)
[2019-12-18] MEDS: ASPIRIN 81 MG ECTAB PO SCH (07:42)
[2019-12-18] MEDS: ATORVASTATIN 40 MG TAB PO SCH (07:43)
[2019-12-18] MEDS: DORZOLAMIDE HCL 2% OPH SOLN 10 ML BTL OPB SCH ×2 (07:43→20:15)
[2019-12-18] MEDS: OSELTAMIVIR PHOSPHATE SUSP 30 MG/5 ML UDP PO SCH ×2 (07:48→20:14)
[2019-12-18] MEDS: DOXYCYCLINE HYCLATE 100 MG in DEXTROSE 5% 100 ML IV SCH ×2 (11:06→22:28)
[2019-12-18] MEDS: cefTRIAXone SODIUM 1,000 MG in DEXTROSE 5% 50 ML IV SCH (18:33)
[2019-12-18] MEDS: LATANOPROST 0.005% OP SOLN 2.5 ML BTL OPB SCH (18:43)
--- NOTE | 2019-12-18 22:04 | Hospitalist Progress Note ---
Date of Service December 18, 2019 Assessment & Plan (1) Influenza: [employer] swab PCR positive for influenza A. Continue Rx with oseltamivir. (2) Pneumonia: CXR showed suspected NANCY infiltrate. Receiving doxycycline and ceftriaxone. Smoker- consider further imaging with CT. (3) Altered mental status: Family noted confusion day of admission. Head CT showed small vessel ischemic changes, no acute findings. Probable encephalopathy secondary to influenza or pnuemonia Improved. (4) Asthma: Bronchodilators PRN. (5) Abdominal aortic aneurysm: Followed by Vascular Surgery at [facility]. Overdue for f/u imaging. AAA measures 4.9 cm in greatest diameter by US. (6) CKD (chronic kidney disease), stage III: Serum creatinine = 1.08. Follow. (7) Dyslipidemia: LDL-c = 40. Continue atorvastatin. (8) Smoking: Smoking cessation counseling. (9) Leg pain: Venous duplex lower extremities negative for DVT. Arterial duplex lower extremities- ankle to brachial indices borderline low, monophasic flow in calf and pedal vessels, no significant stenoses. (10) DVT prophylaxis: SCD's ordered. Add enoxaparin. Ambulate. (11) Discharge planning issues: Anticipated discharge to home. Family Medicine follow-up with Dr. Tyler. Admission and Anticipated Discharge Date Admission Date: December 16, 2019 Anticipated date of discharge: 12/19/19 Subjective Recheck for multiple problems. Patient seen in their room around 1610. Family visiting. Persistent cough. Intermittent low grade fever. Review of Systems: Constitutional- as noted above. Cardiac- no chest pain. Pulmonary- as noted above. GI- no nausea, vomiting, diarrhea, melena, hematochezia. - no urinary symptoms. Otherwise, as noted above. Physical Exam Constitutional: no acute distress Eyes: + anicteric sclerae Respiratory: no respiratory distress Auscultation: + rhonchi and + wheezes (diffuse, mild) Cardiovascular: Rate/Rhythm: regular rate and regular rhythm Vessels: no JVD Extremities: no calf tenderness and no edema Gastrointestinal (Abdomen): normal bowel sounds, soft, nontender, no hepatosplenomegaly Musculoskeletal: Extremities: no cyanosis Skin: no rashes, warm and dry Psychiatric: Orientation: alert Results & Data ([facility]) Vital Signs (Past 12 Hours) Vital Signs Temp Pulse Resp BP Pulse Ox 02/13/20 19:15 36.8 C 59 L 18 115/62 97 12/18/19 15:40 37.4 C 74 20 101/76 95 12/18/19 11:18 37.1 C 57 L 18 112/60 98 Laboratory Results 12/18/19 06:49 12/18/19 06:49 (1) Pneumonia Laterality: unspecified laterality Lung location: unspecified part of lung Pneumonia type: due to unspecified organism Qualified Code(s): J18.9 - Pneumonia, unspecified organism (2) Altered mental status Altered mental status type: unspecified Qualified Code(s): R41.82 - Altered mental status, unspecified
[2019-12-19 06:23] LABS: Basophils # (auto) 0.01 K/uL (0-0.2); Basophils % (auto) 0.3 %; Eosinophils # (auto) 0.05 K/uL (0-0.5); Eosinophils % (auto) 1.5 %; Hematocrit (blood only) 31.4 % (37-47); Hemoglobin 10.6 g/dL (12.0-16.0); Lymphocytes # (auto) 1.63 K/uL (1.2-3.4); Lymphocytes % (auto) 48.2 %; Mean Corpuscular Hemoglobin 30.1 pg (25-34); Mean Corpuscular Hgb Conc 33.8 g/dL (32-36); Mean Corpuscular Volume 89.2 fL (80-100); Mean Platelet Volume 9.5 fL (7.4-10.4); Monocytes # (auto) 0.56 K/uL (0.11-0.59); Monocytes % (auto) 16.6 %; Neutrophils # (auto) 1.13 K/uL (1.4-6.5); Neutrophils % (auto) 33.4 %; Platelet Count 199 K/uL (130-400); RDW Coefficient of Variation 13.5 % (11.5-14.5); RDW Standard Deviation 44.2 fL (36.4-46.3); Red Blood Count 3.52 M/uL (4.2-5.4); White Blood Count 3.38 K/uL (4.8-10.8)
[2019-12-19 06:48] LABS: BUN Creatinine Ratio 11.7 (10-20); Calcium 8.5 mg/dl (8.5-10.1); Est GFR (African American) 66.5; Est GFR (Non-African American) 57.4; Potassium 3.7 mmol/L (3.5-5.1)
[2019-12-19] MEDS: ATORVASTATIN 40 MG TAB PO SCH (08:03)
[2019-12-19] MEDS: ASPIRIN 81 MG ECTAB PO SCH (08:03)
[2019-12-19] MEDS: DORZOLAMIDE HCL 2% OPH SOLN 10 ML BTL OPB SCH (08:03)
[2019-12-19] MEDS: OSELTAMIVIR PHOSPHATE SUSP 30 MG/5 ML UDP PO SCH (09:58)
[2019-12-19] MEDS ORDERED: DOXYCYCLINE HYCLATE 100 MG CAP PO ONE (10:00)
--- NOTE | 2019-12-19 16:52 | Hospitalist Progress Note ---
Date of Service December 19, 2019 Assessment & Plan (1) Influenza: Presented with fever and cough. [employer]GER swab PCR positive for influenza A. Treated with oseltamivir. Cough improved and afebrile. (2) Pneumonia: CXR showed suspected NANCY infiltrate. Receiving doxycycline and ceftriaxone. Smoker- consider outpatient screening CT chest. Otherwise, check repeat chest x-ray in 4 weeks. (3) Altered mental status: Family noted confusion day of admission. Head CT showed small vessel ischemic changes, no acute findings. Probable encephalopathy secondary to influenza or pneumonia Resolved. (4) Asthma: Received bronchodilators PRN. (5) Abdominal aortic aneurysm: Followed by Vascular Surgery at [facility]. Overdue for f/u imaging. AAA measures 4.9 cm in greatest diameter by US, compared to 4.[address] February 2019. Outpatient follow-up with Vascular Surgery. (6) CKD (chronic kidney disease), stage III: Serum creatinine = 0.95 Follow. (7) Dyslipidemia: LDL-c = 40. Continue atorvastatin. (8) Smoking: Smoking cessation encouraged. (9) Leg pain: Venous duplex lower extremities negative for DVT. Arterial duplex lower extremities- ankle to brachial indices borderline low, monophasic flow in calf and pedal vessels, no significant stenoses. (10) DVT prophylaxis: SCD's ordered. SQ enoxaparin. Ambulate. (11) Discharge planning issues: Discharge to home. Family Medicine follow-up with Dr. Tyler. Admission and Anticipated Discharge Date Admission Date: December 16, 2019 Subjective Recheck for multiple problems. Patient seen in their room around 1640. Daughter visiting. Feels much better. Cough improved. No SOB. No fever. No nausea, vomiting, diarrhea. Ambulating. Ready to go home. Physical Exam Constitutional: no acute distress Eyes: + anicteric sclerae Respiratory: no respiratory distress Auscultation: lungs clear to auscultation bilaterally Cardiovascular: Rate/Rhythm: regular rate and regular rhythm Vessels: no JVD Extremities: no calf tenderness and no edema Gastrointestinal (Abdomen): normal bowel sounds, soft, nontender, no hepatosplenomegaly Musculoskeletal: Extremities: no cyanosis Skin: no rashes, warm and dry Psychiatric: Orientation: alert Results & Data ([facility]) Vital Signs (Past 12 Hours) Vital Signs Temp Pulse Resp BP Pulse Ox 12/19/19 14:38 36.9 C 60 18 135/82 96 12/19/19 07:35 36.9 C 62 16 116/68 94 Laboratory Results 12/19/19 06:10 12/19/19 06:10 (1) Pneumonia Laterality: unspecified laterality Lung location: unspecified part of lung Pneumonia type: due to unspecified organism Qualified Code(s): J18.9 - Pneumonia, unspecified organism (2) Altered mental status Altered mental status type: unspecified Qualified Code(s): R41.82 - Altered mental status, unspecified
[2019-12-19] MEDS ORDERED: STROKE PATIENT DISCHARGE STA (17:01)
[2019-12-19] MEDS ORDERED: DOXYCYCLINE HYCLATE 100 MG CAP PO SCH (21:00)
--- NOTE | 2019-12-20 08:22 | Discharge Summary ---
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 She is supposed to be on oxygen all the time, but she uses only in the nighttime and she still smokes, she has smoked since as a teenager, but currently 1 pack of cigarettes, lasts for 2-3 days. The patient lives with her daughter. In the morning, when the daughter left for work she was fine, and when the daughter came in the evening around 5:00, patient was found to be confused. She could not open her eyes, she could not squeeze her hands, and they thought maybe she was having a stroke and EMS was called in and patient was brought to the ER. In the ER, when she came in, she was afebrile, but later she spiked temperature. Her blood pressure is on the lower side, but there is no leukocytosis. She was oriented to name. UA was negative. CT of the head was unremarkable. Chest x-ray showed possible left apical nodular infiltrate. So it was thought that confusion could be from her ongoing infectious process. The patient is somewhat warm to touch, oriented to name, can tell her date of , but when asked where she is, she says knows where she is, but she does not answer and she talks sometimes tangentially. She knows her daughters names. Could not get much history from the patient As per the daughters, last night she had some cough, complained of some back pain, they thought may be she has some UTI. Apparently, she was doing fine otherwise and when daughter was going to work, she was doing fine and also in the evening when she came in, she saw that she cleaned the kitchen, but we do not know exact time when she got confused. There is no nausea, vomiting or diarrhea. No complaint of any pain. Otherwise she is very independent and ambulates fine, but today when they were bringing her to hospital, she looked like she was very unstable on ambulation. But after some time later it looks like her mental status is slightly improved. She seems to be a little more appropriate in answering questions. She was able to obey simple commands. When discussed with daughter about whether she wants any MRI scan to rule out stroke, the daughter wanted to get MRI scan initially but when flu came back positive she was ok waiting and see and also we don't know the exact time of her staring of confusion . Principal Diagnosis influenza A possible NANCY pneumonia OTHER ACUTE DIAGNOSES altered mental status / encephalopathy Discharge Data Allergies Allergy/AdvReac Type Severity Reaction Status Date / Time morphine AdvReac Mild NAUSEA Verified 12/16/19 18:24 Consultations 12/16/19 19:40 ED Decision to Admit Stat 12/16/19 22:20 Consult Case Management - Discharge Planning Routine Consult Case Management - Discharge Planning Routine Ordered Studies 12/16/19 17:46 CT head/brain wo con Stat 12/17/19 14:09 US aorta duplex Routine US arterial duplex LE BI Routine US venous doppler LE BI Routine Hospital Course (1) Influenza: Presented with fever and cough. EXAM [employer]CTOR swab PCR positive for influenza A. Treated with oseltamivir. Cough improved and afebrile by discharge. Discharge on oseltamivir to complete 5 day course of therapy. (2) Pneumonia: CXR showed suspected NANCY infiltrate. Received doxycycline and ceftriaxone with improvement. Discharged on doxycycline to complete 7 day course of therapy. Smoker- consider outpatient screening CT chest. Otherwise, check repeat chest x-ray in 4 weeks. (3) Altered mental status: Family noted confusion day of admission. Head CT showed small vessel ischemic changes, no acute findings. Probable encephalopathy secondary to influenza or pneumonia Resolved. (4) Asthma: Received bronchodilators PRN. (5) Abdominal aortic aneurysm: Followed by Vascular Surgery at [facility]. Overdue for f/u imaging. AAA measures 4.9 cm in greatest diameter by US, compared to 4.[address] February 2019. Outpatient follow-up with Vascular Surgery. (6) CKD (chronic kidney disease), stage III: Serum day of discharge 0.95 Follow. (7) Dyslipidemia: LDL-c = 40. Continue atorvastatin. (8) Smoking: Smoking cessation encouraged. (9) Leg pain: Venous duplex lower extremities negative for DVT. Arterial duplex lower extremities- ankle to brachial indices borderline low, monophasic flow in calf and pedal vessels, no significant stenoses. (10) DVT prophylaxis: SCD's ordered. SQ enoxaparin. Ambulate. (11) Discharge planning issues: Discharge to home. Family Medicine follow-up with Dr. Tyler. Total Time Total Time Spent Total Time Spent (In Minutes): 45 Discharge Plan Discharge Items Patient Disposition: Home - Self-Care Reason For Visit: fever, cough Discharge Diagnosis: influenza A possible pneumonia Condition on Discharge: Good Activity: Resume your previous activity Non-emergency contact: Primary Care Provider and Hospitalist Call non-emergency contact if: you have any medication questions, your symptoms worsen and your temperature is above 101 Follow-up/Referrals: Meena Tyler MD [Primary Care Provider] - 12/26/19 10:45 am (Follow up appt with Dr. Tyler is Tuesday 12/26 @ 1045am. Please arrive 15 minutes prior to appt time. If this appt does not fit your schedule please call [phone] to reschedule. [address] [place] [address] Dr Tafoya) Diet: Heart Healthy Addtl Attending Provider Instructions: MEDICATION CHANGES: Take oseltamivir (Tamiflu) twice a day until gone for the flu. Take doxycycline twice a day until gone for possible pneumonia. Take MiraLax as directed once or twice a day for constipation. SUMMARY OF TEST RESULTS: Flu test showed influenza A. Chest x-ray showed possible pneumonia. Ultrasound of legs did not show any blood clots. Ultrasound of aorta showed that the aneurysm is a little bit larger than last February. RECOMMENDATIONS FOR FOLLOW-UP: Follow-up with Vascular Surgery for your abdominal aortic aneurysm. OTHER INSTRUCTIONS: Please do not smoke. It is bad for your lungs, heart, and blood vessels. Please ask Dr. Tyler to check repeat x-ray of chest in about 1 month. Seek medical attention if you have: * temperature above 101 * chest pain or trouble breathing * abdominal pain, nausea, vomiting * diarrhea, dark stools or bloody stools * any unanswered questions or concerns Call 911 if symptoms are severe. Please take good care of yourself. Call if you have any questions or problems. You can reach a [facility] hospitalist on duty at [facility] 24 hours a day by calling [phone]. My cell # is [phone]. Pending Studies at Discharge: No Stand-Alone Forms: My [facility], Smoking Cessation Medications and DC Order Prescriptions: New oseltamivir [Tamiflu] 30 mg capsule 30 mg PO BID Qty: 5 RF: 0 doxycycline hyclate 100 mg capsule 100 mg PO BID Qty: 9 RF: 0 Continued latanoprost [Xalatan] 0.005 % drops 1 drp OPB HS RF: 0 dorzolamide [Trusopt] 2 % drops 1 drp OPB BID RF: 0 atorvastatin [Lipitor] 40 mg tablet 40 mg PO QAM RF: 0 aspirin 81 mg Tablet,Delayed Release (Dr/Ec) 81 mg PO QAM RF: 0 Discharge Orders: Discharge Order (Routine); Ordered 12/19/19 Ordered By: Meliton Bryan Admission Data Admit Date/Time: 12/16/19 20:20 Attending Provider: Meliton Bryan Admit Provider: Juan Carlos Washington Primary Care Provider: Meena Tyler Other Providers: Juan Carlos Washington Other Interventions: Discharge Summary Assessment (RN) Last Done: 12/19/19 16:57 DC Date/Time DO NOT enter until pt leaves facility: 12/19/19 17:39
== END 2019-12-19 17:39 | disposition home or self-care (01) | DRG 195 ==
LOC: ED 17:30 → 2E 20:20 → 4W 12-18 19:05